=== PATIENT | male | born 1975 | race Caucasian/White ===

== ENCOUNTER 2017-06-19 14:00 | Emergency (ER) | payer BC ==
--- NOTE | 2017-06-19 14:41 | UC ---
Abdominal Pain Male HPI - HPI Summary HPI Summary: patient to urgent care this afternoon with his . Patient has had worsening right lower quadrant pain and vomiting throughout the day. He's clammy sweaty to touch. Last meal was last night. No surgical history the past - History of Current Complaint Chief Complaint: UCAbdominalPain Stated Complaint: ABD PAIN/VOMITING Time Seen by Provider: 06/19/17 14:40 Hx Obtained From: Patient Onset/Duration: Sudden Onset, Lasting Days - 1, Still Present Timing: Constant Severity Initially: Mild Severity Currently: Moderate Pain Intensity: 7 Pain Scale Used: 0-10 Numeric Location: Discrete At: RLQ Radiates: No Character: Cramping, Sharp Aggravating Factor(s): Food, Movement Alleviating Factor(s): Nothing Associated Signs And Symptoms: Positive: Diaphoresis, Decreased Appetite, Nausea , Vomiting. Negative: Urinary Symptoms, Diarrhea - Allergies/Home Medications Allergies/Adverse Reactions: Allergies Allergy/AdvReac Type Severity Reaction Status Date / Time No Known Allergies Allergy Verified 06/19/17 14:30 Home Medications: Home Medications NK [No Home Medications Reported] 06/19/17 [History Confirmed 06/19/17] PMH/Surg Hx/FS Hx/Imm Hx Previously Healthy: Yes - Family History Known Family History: Positive: None - Social History Occupation: Employed Full-time Lives: With Family Alcohol Use: None Substance Use Type: None Smoking Status (MU): Never Smoked Tobacco Have You Smoked in the Last Year: No Review of Systems Constitutional: Chills Skin: Negative Eyes: Negative ENT: Negative Respiratory: Negative Cardiovascular: Negative Gastrointestinal: Abdominal Pain, Vomiting, Nausea Genitourinary: Negative Motor: Negative Neurovascular: Negative Musculoskeletal: Negative Neurological: Negative Psychological: Negative Is Patient Immunocompromised?: No All Other Systems Reviewed And Are Negative: Yes Physical Exam Triage Information Reviewed: Yes Appearance: Well-Nourished, Ill-Appearing, Pain Distress Vital Signs Reviewed: Yes Eye Exam: Normal Eyes: Positive: Conjunctiva Clear ENT Exam: Normal ENT: Positive: Normal ENT inspection, Hearing grossly normal. Negative: Nasal congestion - O uvulitis R, Muffled voice, Hoarse voice, Dental tenderness Dental Exam: Normal Neck exam: Normal Neck: Positive: Supple, Nontender Respiratory Exam: Normal Respiratory: Positive: No respiratory distress, No accessory muscle use Cardiovascular Exam: Normal Cardiovascular: Positive: RRR, Pulses Normal, Brisk Capillary Refill Abdominal Exam: Other Abdomen Description: Positive: No Organomegaly, Soft, Distended, McBurney's Point Tenderness. Negative: CVA Tenderness (R), CVA Tenderness (L), Hepatomegaly, Peritoneal Signs, Pulsatile Mass, Splenomegaly Bowel Sounds: Positive: Hypoactive Musculoskeletal Exam: Normal Musculoskeletal: Positive: Strength Intact, ROM Intact, No Edema Neurological Exam: Normal Neurological: Positive: Alert, Muscle Tone Normal Psychological Exam: Normal Skin Exam: Normal Abd Pain Male Course/Dx - Course Course Of Treatment: Zofran sublingual 1 now, nothing by mouth discharged from urgent care to go directly to the emergency department at [facility] - Differential Dx/Clinical Impression Provider Diagnoses: Acute nausea and vomiting, elevated blood pressure without diagnosis of hypertension - Physician Notification/Consults Time Discussed With Above Provider: 15:00 - Dr. Mukesh Dominguez Discharge - Sign-Out/Discharge Documenting (check all that apply): Discharge - prescribed for like 5:30 pills - Discharge Plan Condition: Stable Disposition: HOME Patient Education Materials: Acute Abdominal Pain (DC), Hypertension (ED) Referrals: Rivera Smith NP [Primary Care Provider] - 1 Week Additional Instructions: Nothing to eat or drink--Please report directly to the emergency department at [facility] - Billing Disposition and Condition Condition: STABLE Disposition: HOME
[2017-06-19 14:47] VITALS: BP 151/99
[2017-06-19] MEDS ORDERED: Ondansetron ODT TAB* 4 MG PO ONE (14:47)
== END 2017-06-19 14:58 | disposition home or self-care (01) ==
LOC: UCCORT 14:00
DX: R11.2 Nausea with vomiting, unspecified (principal); R03.0 Elevated blood-pressure reading, without diagnosis of hypertension
CPT/HCPCS: 99201; A9270-GY; G0463